=== PATIENT | female | born 1980 | race American Indian/Alaskan Native ===

== ENCOUNTER 2018-01-05 18:53 | Emergency (ER) | payer OTHER ==
[2018-01-05 19:07] VITALS: BP 135/74
[2018-01-05 19:54] LABS: HCG Qualitative,Urine Negative (Negative)
[2018-01-05] MEDS ORDERED: ULTRAM PO ONE (22:06)
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
== END 2018-01-05 22:48 | disposition home or self-care (01) ==
LOC: ED 18:53
DX: S39.012A Strain of muscle, fascia and tendon of lower back, initial encounter (principal); V89.2XXA Person injured in unspecified motor-vehicle accident, traffic, initial encounter; Y93.89 Activity, other specified; Y92.89 Other specified places as the place of occurrence of the external cause; Y99.8 Other external cause status
CPT/HCPCS: 81025; 99283

== ENCOUNTER 2019-02-25 14:14 | Emergency (ER) | payer OTHER ==
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
[2019-02-25 14:23] VITALS: BP 132/66
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
--- NOTE | 2019-02-25 15:09 | XRay Report ---
LUMBOSACRAL SPINE, 3 VIEWS: History: Back pain Findings: The vertebral bodies, disk spaces and posterior elements are intact. No compression deformity or malalignment. The SI joints are symmetric and unremarkable. Impression: 1. No evidence for acute injury to the lumbar spine.
--- NOTE | 2019-02-25 15:09 | XRay Report ---
LEFT FEMUR: HISTORY: pain AP and lateral views of the femur demonstrate normal mineralization and contours for this patient's age. No destructive changes are noted and the adjacent soft tissues are normal. IMPRESSION: Normal left femur.
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
== END 2019-02-25 16:11 | disposition home or self-care (01) ==
LOC: ED 14:14
DX: M54.2 Cervicalgia (principal); M79.605 Pain in left leg; M54.5 Low back pain; V49.59XA Passenger injured in collision with other motor vehicles in traffic accident, initial encounter; Y93.89 Activity, other specified; Y92.89 Other specified places as the place of occurrence of the external cause; Y99.8 Other external cause status
CPT/HCPCS: 72040; 72100